=== PATIENT | male | born 1940 | race Caucasian/White ===

== ENCOUNTER 2017-04-14 10:57 | Inpatient (IN) | payer OTHER ==
[~2017-04-14] VITALS: Ht 177.8 cm; Wt 101.8 kg
--- NOTE | ~2017-04-14 | D ---
[facility] [place] [address] DISCHARGE SUMMARY Name: JAYLON COCHRAN Room #: 448-P [facility] IN ..#: [id number] Admission: 04/14/17 Attend Phys: Dany Thibodeaux MD Discharge: 04/17/17 Date of : 42 Report #: [id number] THIS REPORT FOR: //name// CC: Dany Thibodeaux DATE OF SERVICE: 04/17/2017 DISCHARGE DIAGNOSIS: Cellulitis, left foot. HOSPITAL COURSE: The patient is a 76-year-old white male admitted after failing outpatient therapy for cellulitis of his left foot. Blood cultures and wound cultures were obtained. He was started on vancomycin. Blood cultures remained negative. Wound culture showed methicillin-sensitive Staph aureus. After his three-day hospitalization, he was felt ready for discharge with switch to oral antibiotics. We will use cephalexin. He will also use Bactroban ointment as well. He will follow up with his orthopedic surgeon in 2 days as scheduled. He will follow up with me next week. DISCHARGE MEDICATIONS: Include Bactroban ointment 3 times daily for 5 days, cephalexin 500 mg q.i.d. for 7 days, and his usual home medications. DISCHARGE DIET: Regular. DISCHARGE ACTIVITIES: Ad franklyn. DISCHARGE DISPOSITION: He will follow up with me in 1 week. He will follow up with Orthopedic Surgery in 2 days. <ELECTRONICALLY SIGNED> By: Ramila Rodriguez MD 04/21/17 1136 1210 1221 Dany Thibodeaux MD /federico
--- NOTE | ~2017-04-14 | H ---
[facility] [place] [address] HISTORY AND PHYSICAL Name: JOSEMILADYJAYLON Lior Room #: 448-P [facility] IN ..#: [id number] Admission: 04/14/17 Attend Phys: Dany Thibodeaux MD Discharge: Date of : 42 Report #: [id number] THIS REPORT FOR: //name// CC: Dany Thibodeaux DATE OF SERVICE: 04/15/2017 CHIEF COMPLAINT: Left foot pain. HISTORY OF PRESENT ILLNESS: The patient is a 76-year-old white male who underwent ganglion cyst removal on his left foot 3 weeks ago. He did well initially postoperatively; however, this past week, he developed redness and soreness around his incision. He was placed on Bactrim on April 09 by his orthopedic surgeon. He had not improved and thus presented to the emergency room on 04/14/2017. He was found to have significant cellulitis around his wound. He was admitted and placed on vancomycin. Wound and urine cultures were obtained. PAST MEDICAL HISTORY: Significant for urticaria, left 9th rib fracture, diverticulosis, colon polyps, hypertension, hypercholesterolemia, and gout. PAST SURGICAL HISTORY: Right foot bone spur surgery in 2004, bilateral knee replacements in 2008, right cataract repair in 2008, umbilical hernia repair with mesh in 2011, right fourth finger fasciotomy in 2011, right total hip replacement in 2013, basal cell carcinoma removal in 2014, right Dupuytren's contracture repair in 2016. FAMILY HISTORY: Parents both . SOCIAL HISTORY: He is retired. He is . He has 4 children and 8 grandchildren. Distant smoking history, social alcohol use, no drug use. Walking and golf for exercise. REVIEW OF SYSTEMS: He does report some febrile symptoms, but otherwise, review of systems is negative except as per HPI. MEDICATIONS: On admission include Bactrim, fish oil, Lipitor, lisinopril, and Dyazide MEDICATION ALLERGIES: Hypotension with TERAZOSIN and TAMSULOSIN. PHYSICAL EXAMINATION: GENERAL: He is a well-nourished white male, resting comfortably in his hospital bed in no apparent distress. VITAL SIGNS: He is currently afebrile. Blood pressure 120/72, pulse rate 70 at rest, respirations 10 [address] [address] HISTORY AND PHYSICAL Name: JAYLON COCHRAN Room #: 448-P [facility]#: [id number] Admission: 04/14/17 Attend Phys: Dany Thibodeaux MD Discharge: Date of : 42 Report #: [id number] HEENT: Grossly unremarkable. NECK: Supple. CHEST: Clear. HEART: Regular. ABDOMEN: Benign. GENITOURINARY AND RECTAL: Deferred. EXTREMITIES: Left lower extremity shows moderate edema with outlined erythema that is we treating surrounding his left foot incision from ganglion cyst removal surgery. LABORATORY DATA: On admission in the ER, comprehensive medical profile was unremarkable. Lactic acid was 2.3. White count was 8.8 with 69 segs and 1 band. This morning, his complete metabolic profile is unremarkable. Lactic acid is down to 1.2. White blood cell count is stable at 8.3. ASSESSMENT: Left lower extremity cellulitis. PLAN: The patient has been placed on vancomycin. Wound and blood cultures have been obtained. We will continue his current home medications and anticipate 48-72 hours of IV antibiotics. <ELECTRONICALLY SIGNED> By: Dany Thibodeaux MD 04/16/17 [id number] 1110 Dany Thibodeaux MD /nt
[2017-04-14 10:59] VITALS: BP 115/79
[2017-04-14 11:43] LABS: HEMATOCRIT 42.3 % (42.0-52.0); HEMOGLOBIN 14.6 gm/dL (14.0-18.0); MANUAL DIFF YES; MCH 33.5 pg (26.0-34.0); MCHC 34.6 g/dL (28.0-37.0); MCV 96.8 fL (80.0-100.0); PLATELET COUNT 222 thou/uL (150-400); RBC 4.37 mil/uL (4.50-6.00); RDW 14.1 % (10.5-14.5); WBC 8.8 thou/uL (4.0-11.0)
[2017-04-14 11:52] LABS: CALCIUM 9.2 mg/dL (8.5-10.1); CREATININE 1.6 mg/dL (0.7-1.3); POTASSIUM 3.6 mmol/L (3.5-5.1)
[2017-04-14] MEDS ORDERED: MAXZIDE-25 MG1 EACH PO (11:55)
[2017-04-14] MEDS ORDERED: LISINOPRIL5 MG PO (11:56)
[2017-04-14] MEDS ORDERED: ASPIR 8181 MG PO (11:57)
[2017-04-14 11:58] LABS: ALBUMIN 2.7 g/dL (3.4-5.0); DIRECT BILIRUBIN 0.2 mg/dL (<0.1-0.3); TOTAL BILIRUBIN 0.6 mg/dL (<0.1-1.0); TOTAL PROTEIN 7.4 g/dL (6.4-8.2)
[2017-04-14] MEDS ORDERED: BACTRIM DS TAB1 EACH PO (11:58)
[2017-04-14] MEDS ORDERED: ATORVASTATIN CA40 MG PO (12:00)
[2017-04-14 12:19] LABS: ABSOLUTE NEUTROPHILS 6.2 thou/uL (1.4-8.2); PLATELET ESTIMATE NORMAL; TOTAL CELL COUNT 100
[2017-04-14 13:16] VITALS: BP 115/79
[2017-04-14 13:36] VITALS: BP 124/67
[2017-04-14 14:36] VITALS: BP 128/68
[2017-04-14] MEDS ORDERED: FISH OIL 1,001000 M2 PO (15:18)
[2017-04-14] MEDS ORDERED: OCUVITE EYE +1 EACH PO (15:18)
[2017-04-14 20:05] VITALS: BP 134/74
[2017-04-15 04:50] LABS: HEMATOCRIT 36.5 % (42.0-52.0); MCH 33.3 pg (26.0-34.0); MCHC 34.2 g/dL (28.0-37.0); MCV 97.2 fL (80.0-100.0); RBC 3.76 mil/uL (4.50-6.00); RDW 13.8 % (10.5-14.5); WBC 8.3 thou/uL (4.0-11.0)
[2017-04-15 04:51] LABS: HEMOGLOBIN 12.5 gm/dL (14.0-18.0)
[2017-04-15 05:43] LABS: ALBUMIN 2.3 g/dL (3.4-5.0); CALCIUM 8.3 mg/dL (8.5-10.1); CREATININE 1.3 mg/dL (0.7-1.3); POTASSIUM 3.6 mmol/L (3.5-5.1); TOTAL BILIRUBIN 0.6 mg/dL (<0.1-1.0); TOTAL PROTEIN 6.3 g/dL (6.4-8.2)
[2017-04-15 05:59] VITALS: BP 110/49
[2017-04-15 20:00] VITALS: BP 139/73
[2017-04-16 05:58] VITALS: BP 109/72
[2017-04-16 08:49] VITALS: BP 134/73
[2017-04-16 16:11] VITALS: BP 135/80
[2017-04-16 16:13] VITALS: BP 135/80
[2017-04-16 20:12] VITALS: BP 137/81
[2017-04-17 03:48] VITALS: BP 150/85
== END 2017-04-17 15:15 | disposition home or self-care (01) | DRG 603 ==
LOC: ER 10:57 → 4S 12:21 → EROBS 12:21 → 4S 13:47
PROVIDERS: Nurse Practitioner
DX: L03.116 Cellulitis of left lower limb (principal); N17.9 Acute kidney failure, unspecified; E44.1 Mild protein-calorie malnutrition; I10 Essential (primary) hypertension; Z96.653 Presence of artificial knee joint, bilateral; E78.00 Pure hypercholesterolemia, unspecified; M10.9 Gout, unspecified; Z96.641 Presence of right artificial hip joint; Z79.82 Long term (current) use of aspirin; Z79.899 Other long term (current) drug therapy; Z87.81 Personal history of (healed) traumatic fracture; Z98.41 Cataract extraction status, right eye; Z87.891 Personal history of nicotine dependence; Z88.8 Allergy status to other drugs, medicaments and biological substances; Z68.32 Body mass index [BMI] 32.0-32.9, adult
CPT/HCPCS: 10195